=== PATIENT | male | born 1965 | race Caucasian/White ===

== ENCOUNTER 2016-12-24 17:04 | Emergency (ER) | payer BC ==
--- NOTE | ~2016-12-24 | CT4 ---
[facility] A Service of [facility] & [facility] RADIOLOGY TEXT RESULTS PATIENT: OBDULIA DHILLON LOCATION: SED : 69 UNIT #: [id number] AGE: [address]: SINDI CLARK SEX: M ORDER DR: [id number] [place] [id number] E MR#: [id number] Acc #: [id number] NAME: OBDULIA DHILLON. : 1965 SEX: M STUDY DATE/TIME: 12/24/2016 20:05 UNIT: SED ROOM: STUDY DESCRIPTION: CT Abd and Pelv Wo Cont Attending Physician: Sindi Clark Referring Physician: Yaya Paniagua M.D. Ordering Physician: Alfonso Lynn M.D. Primary Care Physician: Felipe Ruth M.D. MEDICAL IMAGING REPORT This report is preliminary unless electronic signature is present. EXAM CT abdomen and pelvis without contrast. HISTORY Left flank pain for [address] exam was performed with one or more of the following radiation dose reduction techniques: automatic exposure control, adjustment of mA and/or kV according to patient size, and iterative reconstruction. FINDINGS CT abdomen and pelvis was performed without contrast. CT ABDOMEN: There is mild left hydronephrosis and left ureteral dilatation. There is a 2 mm nonobstructing stone in the lower pole left kidney. No right hydronephrosis. There is a 12 mm cyst in the lateral segment left hepatic lobe and 5 mm hepatic cyst at the junction of the right and left hepatic lobes. No biliary dilatation. The gallbladder, spleen, pancreas, and adrenal glands are normal. No bowel dilatation. No ascites. No adenopathy. Normal caliber abdominal aorta. Minimal left perinephric stranding. CT PELVIS: There is a 6 mm stone in the distal left ureter 1 cm above the ureterovesical junction with mild dilatation of left ureter down to the obstructing stone. No ascites. No bladder calculi. Appendectomy. No bowel dilatation. IMPRESSION 1. 6 mm obstructing stone in the distal left ureter, 1 cm above the ureterovesical junction causing mild left hydronephrosis and left ureteral dilatation and minimal left perinephric stranding. 2. There is a 2 mm nonobstructing stone in the lower pole left kidney. [facility] A Service of [facility] & [facility] RADIOLOGY TEXT RESULTS PATIENT: OBDULIA DHILLON LOCATION: [facility] [place] : [birth year] UNIT #: [id number] AGE: [address]: SINDI CLARK SEX: M ORDER DR: Dictated by... Dipesh Baig M.D. THIS IS AN ELECTRONICALLY VERIFIED REPORT Dipesh Baig M.D. at 12/24/2016 11:17 PM ALTON/waleska TD: 12/24/2016 22:42 JOB #: [id number] MEDICAL IMAGING REPORT Page 1 of 1
[~2016-12-24 17:04] MED LIST: ALBUTEROL17 GM INH; ANTACID; ASMANEX; CIPRO PO; FLOMAX0.4 M1 DOB; NAPROSYN500 MG PO; NO MEDICATIONS; NORCO1 TAB 10/3 PO; TIZANIDINE HCL4 M1 PO; ZOFRAN ODT4 MG SL
[2016-12-24 17:50] LABS: URINE SOURCE CLEAN CATCH
[2016-12-24 17:54] LABS: BASOPHIL# 0.1 X10e3 (0-0.3); BASOPHIL% 0.8 % (0-2.5); EOSINOPHIL# 0.2 X10e3 (0-0.7); EOSINOPHIL% 1.7 % (0.0-7.0); HEMATOCRIT 45.5 % (38.0-50.0); HEMOGLOBIN 15.2 gm/dL (13.0-16.0); LYMPHOCYTE# 2.4 X10e3 (1.0-3.5); MEAN CELL VOLUME 93.5 FL (83-96); MEAN CORPUSCULAR HEMOGLOBIN 31.3 PG (28-34); MEAN CORPUSCULAR HGB CONC 33.4 g/dL (30-36); MEAN PLATELET VOLUME 8.7 FL (6.5-11.5); MONOCYTE% 8.1 % (3.0-12.0); NEUTROPHIL# 8.5 X10e3 (1.5-7.1); NEUTROPHIL% 69.4 % (40-75); PLATELET COUNT 254 X10e3 (140-420); RED BLOOD COUNT 4.86 X10e (3.90-5.60); RED CELL DISTRIBUTION WIDTH 13.8 % (11.0-15.5); URINE APPEARANCE CLEAR; URINE BILIRUBIN NEG (NEG); URINE BLOOD 1+ (NEG); URINE COLOR YELLOW; URINE GLUCOSE NEG (NORM); URINE KETONE NEG (NEG); URINE LEUKOCYTE ESTERASE NEG (NEG); URINE NITRATE NEG (NEG); URINE PROTEIN NEG (NEG); WHITE BLOOD COUNT 12.2 X10e3 (4.0-10.5)
[2016-12-24 17:55] LABS: DIFF IND NO
[2016-12-24 18:02] LABS: MICRO INDICATED? YES
[2016-12-24 18:03] LABS: CULTURE INDICATED? NO; URINE BACTERIA NEG (NEG); URINE MUCUS PRESENT; URINE SQUAMOUS EPITHELIAL CELL FEW /[HPF]
[2016-12-24 18:18] LABS: ALBUMIN SERUM 3.8 g/dL (3.5-5.0); BILIRUBIN, DIRECT 0.1 mg/dL (0.0-0.2); BILIRUBIN,INDIRECT 0.5 mg/dL (0.0-0.9); BILIRUBIN,TOTAL 0.6 mg/dL (0.2-2.0); CALCIUM SERUM 9.2 mg/dL (8.4-10.2); POTASSIUM 3.6 mmol/L (3.5-5.1); PROTEIN TOTAL SERUM 8.3 g/dL (6.0-8.3)
== END 2016-12-24 21:50 | disposition home or self-care (01) ==
LOC: SED 17:04
PROVIDERS: Physician Assistant
DX: N13.2 Hydronephrosis with renal and ureteral calculous obstruction (principal); Z90.49 Acquired absence of other specified parts of digestive tract
CPT/HCPCS: 36415; 74176; 80048; 80076; 81003; 83690; 85025; 96361; 96374; 96375; 99284; J1885; J2405